=== PATIENT | female | born 1985 | race American Indian/Alaskan Native ===

== ENCOUNTER 2017-03-18 08:40 | Emergency (ER) | payer MEDICAID, OTHER ==
[2017-03-18 08:48] VITALS: BP 114/72; PULSE 75; RESP 98; TEMP 98.3
--- NOTE | 2017-03-18 08:48 | ED PDOC ---
HPI: General Adult Time Seen by Provider: 03/18/17 08:43 Chief Complaint (Provider): "bite lauren" on skin History Per: Patient History/Exam Limitations: no limitations Onset/Duration Of Symptoms: Hrs Additional Complaint(s): 31yo female comes to the ED stating she woke up with "itchy bite lauren" this morning on bilateral sides of abdomen. Denies any pain but notes some redness. Past Medical History Reviewed: Historical Data, Nursing Documentation, Vital Signs Vital Signs: Last Vital Signs Temp 98.3 F 03/18/17 08:44 Pulse 75 03/18/17 08:44 Resp 98 H 03/18/17 08:44 BP 114/72 03/18/17 08:44 Pulse Ox 98 03/18/17 08:47 - Surgical History Surgical History: Hernia Repair - Family History Family History: States: Unknown Family Hx - Home Medications Home Medications: Ambulatory Orders Medication Instructions Recorded Ibuprofen [Motrin Tab] 600 mg PO Q8 PRN #60 tab 12/17/16 Oseltamivir [Tamiflu] 75 mg PO BID #10 cap 12/17/16 Erythromycin 0.5% [Erythromycin] 1 applic .ROUTE QID #1 tube 01/02/17 Cetirizine HCl [Zyrtec] 10 mg PO DAILY #10 capsule 03/18/17 - Allergies Allergies/Adverse Reactions: Allergies Allergy/AdvReac Type Severity Reaction Status Date / Time No Known Allergies Allergy Verified 03/18/17 08:47 Review of Systems Skin: Positive for: Other (hives) Physical Exam - Reviewed Nursing Documentation Reviewed: Yes Vital Signs Reviewed: Yes - Physical Exam Appears: Positive for: Well, Non-toxic, No Acute Distress Head Exam: Positive for: ATRAUMATIC, NORMAL INSPECTION, NORMOCEPHALIC Skin: Positive for: Rash (erythematous hives midline anteriorly and bilateral erythematous lauren flanks. ) Medical Decision Making Medical Decision Makin: Explained will treat symptomatically for itching. Disposition - Clinical Impression Clinical Impression: Insect bites - Patient ED Disposition Is Patient to be Admitted: No - Disposition Referrals: [facility] [Outside] Disposition: Routine/Home Disposition Time: 08:51 Condition: FAIR Prescriptions: Cetirizine HCl [Zyrtec] 10 mg PO DAILY #10 capsule Instructions: Insect Bite or Sting (ED) Additional Comments - Additional Comments Additional Comments: Scribe Attestation: Documented by Archie Stoddard acting as a scribe for Russell Lindsey MD. Provider Scribe Attestation: All medical record entries made by the Scribe were at my direction and personally dictated by me. I have reviewed the chart and agree that the record accurately reflects my personal performance of the history, physical exam, medical decision making, and the department course for this patient. I have also personally directed, reviewed, and agree with the discharge instructions and disposition.
[2017-03-18 08:50] VITALS: O2SAT 98
== END 2017-03-18 09:13 | disposition home or self-care (01) ==
LOC: H.ER 08:40
DX: L50.9 Urticaria, unspecified (principal)

== ENCOUNTER 2017-03-18 18:45 | Emergency (ER) | payer OTHER ==
[2017-03-18 18:59] VITALS: BP 124/48; PULSE 70; RESP 18; TEMP 98.5; O2SAT 100
--- NOTE | 2017-03-18 19:39 | ED PDOC ---
HPI: Skin/Bite Injury Time Seen by Provider: 03/18/17 19:01 Chief Complaint (Nursing): Abnormal Skin Integrity Chief Complaint (Provider): Rash History Per: Patient Additional Complaint(s): Patient has hive like rash to chest. Patient seen today and given zyrtech. Pt can not identify any triggering factors, no new foods, lotions detergents or medications Past Medical History Reviewed: Nursing Documentation, Vital Signs Vital Signs: Last Vital Signs Temp 98.5 F 03/18/17 18:57 Pulse 70 03/18/17 18:57 Resp 18 03/18/17 18:57 BP 124/48 L 03/18/17 18:57 Pulse Ox 100 03/18/17 19:39 - Medical History PMH: No Chronic Diseases - Surgical History Surgical History: Hernia Repair - Family History Family History: States: Unknown Family Hx - Living Arrangements Living Arrangements: With Family - Social History Current smoker - smoking cessation education provided: No Alcohol: Social Drugs: Denies - Home Medications Home Medications: Ambulatory Orders Medication Instructions Recorded Ibuprofen [Motrin Tab] 600 mg PO Q8 PRN #60 tab 12/17/16 Oseltamivir [Tamiflu] 75 mg PO BID #10 cap 12/17/16 Erythromycin 0.5% [Erythromycin] 1 applic .ROUTE QID #1 tube 01/02/17 Cetirizine HCl [Zyrtec] 10 mg PO DAILY #10 capsule 03/18/17 Methylprednisolone [Medrol Dose 4 mg PO DAILY #21 mg 03/18/17 Pack (21 tabs)] - Allergies Allergies/Adverse Reactions: Allergies Allergy/AdvReac Type Severity Reaction Status Date / Time No Known Allergies Allergy Verified 03/18/17 08:47 Review of Systems ROS Statement: Except As Marked, All Systems Reviewed And Found Negative Skin: Positive for: Rash Physical Exam - Reviewed Nursing Documentation Reviewed: Yes Vital Signs Reviewed: Yes - Physical Exam Appears: Positive for: Well, Non-toxic, No Acute Distress Head Exam: Positive for: ATRAUMATIC, NORMAL INSPECTION, NORMOCEPHALIC Skin: Positive for: Normal Color, Warm, Rash (eryhthematous maculopapular rash noted accross chest wall) Eye Exam: Positive for: EOMI, Normal appearance, PERRL ENT: Positive for: Normal ENT Inspection Neck: Positive for: Normal, Painless ROM Cardiovascular/Chest: Positive for: Regular Rate, Rhythm Respiratory: Positive for: CNT, Normal Breath Sounds Gastrointestinal/Abdominal: Positive for: Normal Exam, Bowel Sounds, Soft Back: Positive for: Normal Inspection Extremity: Positive for: Normal ROM Neurologic/Psych: Positive for: Alert, Oriented - ECG O2 Sat by Pulse Oximetry: 100 Medical Decision Making Medical Decision Making: Medicated with Prednisone and Benadryl Disposition - Clinical Impression Clinical Impression: Urticaria - Patient ED Disposition Is Patient to be Admitted: No - Disposition Disposition: Routine/Home Disposition Time: 20:00 Condition: GOOD Prescriptions: Methylprednisolone [Medrol Dose Pack (21 tabs)] 4 mg PO DAILY #21 mg Instructions: Urticaria (ED) Forms: [facility] ED School/Work Excuse
== END 2017-03-18 21:23 | disposition home or self-care (01) ==
LOC: H.ER 18:45
DX: L50.9 Urticaria, unspecified (principal)

== ENCOUNTER 2019-04-20 17:44 | Emergency (ER) | payer SELFPAY ==
[2019-04-20 18:26] VITALS: O2SAT 100
--- NOTE | 2019-04-20 20:52 | ED PDOC ---
HPI: General Adult Time Seen by Provider: 04/20/19 20:21 Chief Complaint (Nursing): ENT Problem Chief Complaint (Provider): Throat Pain History Per: Patient History/Exam Limitations: no limitations Onset/Duration Of Symptoms: Days (x1) Current Symptoms Are (Timing): Still Present Additional Complaint(s): 33 year old female presents to the ED for evaluation of throat pain radiating to the right ear associated with pain on swallowing and a tactile fever for the past day unrelieved by OTC meds last taken this morning. Otherwise, denies sick contacts, neck pain/stiffness, recent travel, nausea, vomiting, diarrhea, rash, abdominal pain, shortness of breath, and cough. LNMP: 03/30/2019 Past Medical History Reviewed: Historical Data, Nursing Documentation, Vital Signs Vital Signs: Last Vital Signs Temp 99.1 F 04/20/19 18:26 Pulse 100 H 04/20/19 18:26 Resp 16 04/20/19 18:26 BP 114/72 04/20/19 18:26 Pulse Ox 100 04/20/19 18:26 - Medical History PMH: No Chronic Diseases - Surgical History Surgical History: Hernia Repair - Family History Family History: States: Unknown Family Hx - Social History Current smoker - smoking cessation education provided: No - Home Medications Home Medications: Ambulatory Orders Medication Instructions Recorded Ibuprofen [Motrin Tab] 600 mg PO Q8 PRN #60 tab 12/17/16 Oseltamivir Cap [Tamiflu] 75 mg PO BID #10 cap 12/17/16 Erythromycin 0.5% [Erythromycin] 1 applic .ROUTE QID #1 tube 01/02/17 Cetirizine HCl [Zyrtec] 10 mg PO DAILY #10 capsule 03/18/17 Methylprednisolone [Medrol Dose 4 mg PO DAILY #21 mg 03/18/17 Pack (21 tabs)] Acetaminophen [Acetaminophen 8 650 mg PO Q8 PRN #21 tablet.er 04/20/19 Hour] Amoxicillin 875 mg PO BID #14 tab 04/20/19 Naproxen 500 mg PO BID PRN #20 tab 04/20/19 - Allergies Allergies/Adverse Reactions: Allergies Allergy/AdvReac Type Severity Reaction Status Date / Time No Known Allergies Allergy Verified 04/20/19 18:26 Review of Systems ROS Statement: Except As Marked, All Systems Reviewed And Found Negative Constitutional: Positive for: Fever (tactile) ENT: Positive for: Throat Pain (radiating to right ear), Other (pain on swallowing) Respiratory: Negative for: Cough, Shortness of Breath Gastrointestinal: Negative for: Nausea, Vomiting, Abdominal Pain, Diarrhea Skin: Negative for: Rash Physical Exam - Reviewed Nursing Documentation Reviewed: Yes Vital Signs Reviewed: Yes - Physical Exam Comments: GENERAL APPEARANCE: Patient is awake, alert, oriented x 3, in no acute distress. Resting comfortably. SKIN: Warm, dry (-) cyanosis (-) rash EYES: normal inspection (-) conjunctival injection (-) crusting ENMT: Bilateral TMs: (-) bulging, (-) erythema. Bilateral ear canals: patent, (- ) exudate, (-) vesicles, (-) erythema (-) cerumen impaction. Pharynx: uvula midline, (+) bilateral erythema, (+) bilateral exudates, (+) bilateral hypertrophy 3+. NECK: Supple, full ROM, (+) anterior cervical lymphadenopathy (-) rigidity (-) tenderness. CHEST AND RESPIRATORY: (-) rhonchi, (-) rales, (-) wheezes; breath sounds equal bilaterally. Respirations even and nonlabored, speaks in full sentences. HEART AND CARDIOVASCULAR: RRR, (-) irregularity ABDOMEN AND GI: Soft; (-) tenderness (-) distention NEURO AND PSYCH: Mental status as above. Gait: steady. Speech: clear. (-) facial asymmetry. Normal cognition. - Laboratory Results Urine POC: Negative - ECG O2 Sat by Pulse Oximetry: 100 (RA) Pulse Ox Interpretation: Normal Medical Decision Making Medical Decision Making: Initial Impression: pharyngitis / tonsillitis Time: 2044 Initial Plan: --Amoxicillin 500mg PO --Decadron 10mg IM --Ibuprofen 800mg PO --Throat culture --Rapid strep --U-preg 2200 Upreg: Negative Rapid Strep: Positive Repeat HR: 97 On re-evaluation, patient reports improvement of symptoms. On exam, patient remains AAOx3, in no acute distress. Vitals stable. Lab/Diagnostic results d/w the patient in great detail. Diagnosis of strep pharyngitis/tonsillitis d/w the patient. Based on history, exam and diagnostic results, plan will be for outpatient follow up. Patient instructed to follow-up with pmd / referral provided / the clinic in 1- 2 days without fail. Advised to take medication as prescribed. Return to the emergency room at any time for any new or worsening symptoms. Patient states she fully agrees with and understands discharge instructions. States that she agrees with the plan and disposition. Verbalized and repeated discharge instructions and plan. I have given the patient opportunity to ask any additional questions. Scribe Attestation: Documented by Ligia Shultz, acting as a scribe for Liz Bartlett PA-C. Provider Scribe Attestation: All medical record entries made by the Scribe were at my direction and personally dictated by me. I have reviewed the chart and agree that the record accurately reflects my personal performance of the history, physical exam, medical decision making, and the department course for this patient. I have also personally directed, reviewed, and agree with the discharge instructions and disposition. Disposition - Clinical Impression Clinical Impression: Streptococcus pharyngitis, Tonsillitis - Patient ED Disposition Is Patient to be Admitted: No Counseled Patient/Family Regarding: Studies Performed, Diagnosis, Need For Followup, Rx Given - Disposition Referrals: [facility] [Outside] Disposition: Routine/Home Disposition Time: 22:00 Condition: STABLE Additional Instructions: The emergency medical care you received today was directed at your acute symptoms. If you were prescribed any medication, please fill it and take as directed. It may take several days for your symptoms to resolve. Return to the Emergency Department if your symptoms worsen, do not improve, or if you have any other problems. Please contact your doctor in 2 days for re-evaluation and follow up / or call one of the physicians/clinics you have been referred to that are listed on the Patient Visit Information form that is included in your discharge packet. Bring any paperwork you were given at discharge with you along with any medications you are taking to your follow up visit. Our treatment cannot replace ongoing medical care by a primary care provider (PCP) outside of the emergency department. Prescriptions: Acetaminophen [Acetaminophen 8 Hour] 650 mg PO Q8 PRN #21 tablet.er PRN Reason: pain/fever Amoxicillin 875 mg PO BID #14 tab Naproxen 500 mg PO BID PRN #20 tab PRN Reason: Pain, Moderate (4-7) Instructions: Sore Throat in Adults, Strep Throat (DC) Forms: [email or web address] (Namibian), [facility] ED School/Work Excuse Print Language: YAKUT - POA Present On Arrival: None Results - Lab Results Lab Results: 04/20/19 21:17 Grp A Beta Strep Ag Positive H
[2019-04-20 22:14] VITALS: BP 123/74; PULSE 97; RESP 18; TEMP 99.2
== END 2019-04-20 22:13 | disposition home or self-care (01) ==
LOC: H.ER 17:44
DX: J02.0 Streptococcal pharyngitis (principal); J03.90 Acute tonsillitis, unspecified
CPT/HCPCS: 81025; 87070; 87430; 96372; 99283; J1100